=== PATIENT | male | born 1975 ===

== ENCOUNTER 2020-05-25 15:59 | Inpatient (IN) | payer SELFPAY ==
[~2020-05-25] VITALS: Ht 160 cm; Wt 78.5 kg
[~2020-05-25 15:59] MED LIST: INSU100I16 SQ; MTF500T PO; SITA100T PO
--- NOTE | 2020-05-25 16:03 | NUR ---
NOTIFIED DERRICK STINSON OF PT REPORTED CHEST TIGHTNESS
--- NOTE | 2020-05-25 16:28 | NUR ---
pt on 45% O2 on room air. rn quickly placed pt on 15L per n.c. until RT notified and bipap was set up.
[2020-05-25 16:39] VITALS: BP 121/77
--- NOTE | 2020-05-25 16:42 | ED Cough/URI ---
General Chief Complaint: Respiratory Problems Stated Complaint: CHEST TIGHTNESS/COUGH/SOA/COVID + Exam Limitations: clinical condition, language barrier History of Present Illness Date Seen by Provider: May 25, 2020 Time Seen by Provider: 16:28 Initial Comments 45-year-old male presents with chest tightness, shortness of breath, cough. Patient tested positive for COVID 2 days ago. Patient reports symptoms going on for 4 or 5 days. Patient has a known diabetic and takes pills for his diabetes. He does not take insulin. Patient states only French and an tmd teacher assistant was used so history of present illness may be limited. Patient's initial saturation upon arrival were 45%. Your brief history and which patient states he has diabetes, takes diabetic pills, has no known drug allergies, no other medical conditions he was in placed on BiPAP and tmd teacher assistant was no longer used and a strainer longer obtain due to patient distress. Chart review shows the patient is supposed be on Levemir but he states he does not take insulin shots Allergies and Home Medications Allergies Coded Allergies: No Known Drug Allergies (Unverified , 06/07/12) Home Medications No Active Prescriptions or Reported Meds Patient Home Medication List Home Medication List Reviewed: Yes (all he possibly on Levemir) Review of Systems Review of Systems Constitutional: chills, fever, malaise, weakness Respiratory: cough, short of breath Cardiovascular: chest pain; No palpitations, No syncope Gastrointestinal: no symptoms reported Genitourinary: no symptoms reported Musculoskeletal: no symptoms reported Skin: no symptoms reported Psychiatric/Neurological: No Symptoms Reported Hematologic/Lymphatic: No Symptoms Reported Past Bzboykn-Otafhm-Qmygsg Hx Past Med/Social Hx: Reviewed Nursing Past Med/Soc Hx Patient Social History Recent Foreign Travel: No Contact w/Someone Who Travel: No Immunizations Up To Date Date of Influenza Vaccine: Jun 08, 2012 Past Medical History Reproductive Disorders: No Physical Exam Vital Signs - First Documented 05/25/20 05/25/20 16:28 16:39 Temp 38.0 Pulse 105 Resp 25 B/P (MAP) 121/77 (92) Pulse Ox 97 O2 Delivery NIV Bilevel O2 Flow Rate 60.00 Capillary Refill : Height: '" Weight: lbs. oz. kg; BMI Method: General Appearance: mild distress, other (lethargic) Eyes: Bilateral Eye Normal Inspection Neck: full range of motion, supple Respiratory: no respiratory distress, no accessory muscle use, decreased breath sounds (bilateral bases) Cardiovascular: normal peripheral pulses, regular rate, rhythm Gastrointestinal: non tender, soft Neurologic/Psychiatric: no motor/sensory deficits, normal mood/affect, oriented x 3, other (lethargic) Skin: normal color, warm/dry Focused Exam Lactate Level 05/25/20 16:30: Lactic Acid Level 1.75 Respiratory: Decreased Breath Sounds Cardiovascular: Regular Rate, Rhythm Skin: normal color, warm/dry Lactic Acid Level Laboratory Tests Test 05/25/20 16:30 Lactic Acid Level 1.75 MMOL/L (0.50-2.00) Progress/Results/Core Measures Suspected Sepsis Infection Criteria Present: Documented Infection New/Unexplained Altered Menta: No Within 3hrs of presentation: Admin ABX, Focus exam, Lactate level SIRS Temperature: Pulse: Respiratory Rate: Blood Pressure / Mean: 05/25/20 16:30: Lactic Acid Level 1.75 Laboratory Tests 05/25/20 16:30: INR Comment 1.1, Total Bilirubin 0.5 Results/Orders Lab Results Laboratory Tests Test 05/25/20 16:30 05/25/20 17:03 Range/Units White Blood Count 13.5 H 4.3-11.0 10^3/uL Red Blood Count 5.25 4.30-5.52 10^6/uL Hemoglobin 14.1 13.3-17.7 g/dL Hematocrit 44 40-54 % Mean Corpuscular Volume 83 80-99 fL Mean Corpuscular Hemoglobin 27 25-34 pg Mean Corpuscular Hemoglobin Concent 32 32-36 g/dL Red Cell Distribution Width 12.3 10.0-14.5 % Platelet Count 303 130-400 10^3/uL Mean Platelet Volume 10.1 9.0-12.2 fL Immature Granulocyte % (Auto) 2 % Neutrophils (%) (Auto) 81 H 42-75 % Lymphocytes (%) (Auto) 13 12-44 % Monocytes (%) (Auto) 5 0-12 % Eosinophils (%) (Auto) 0 0-10 % Basophils (%) (Auto) 0 0-10 % Neutrophils # (Auto) 10.9 H 1.8-7.8 10^3/uL Lymphocytes # (Auto) 1.7 1.0-4.0 10^3/uL Monocytes # (Auto) 0.6 0.0-1.0 10^3/uL Eosinophils # (Auto) 0.0 0.0-0.3 10^3/uL Basophils # (Auto) 0.0 0.0-0.1 10^3/uL Immature Granulocyte # (Auto) 0.2 H 0.0-0.1 10^3/uL Prothrombin Time 14.6 12.2-14.7 SEC INR Comment 1.1 0.8-1.4 Activated Partial Thromboplast Time 29 24-35 SEC Fibrinogen 1123 H 221-496 MG/DL Sodium Level 132 L 135-145 MMOL/L Potassium Level 4.2 3.6-5.0 MMOL/L Chloride Level 96 L 98-107 MMOL/L Carbon Dioxide Level 16 L 21-32 MMOL/L Anion Gap 20 H 5-14 MMOL/L Blood Urea Nitrogen 18 7-18 MG/DL Creatinine 0.97 0.60-1.30 MG/DL Estimat Glomerular Filtration Rate > 60 BUN/Creatinine Ratio 19 Glucose Level 303 H 70-105 MG/DL Lactic Acid Level 1.75 0.50-2.00 MMOL/L Calcium Level 7.9 L 8.5-10.1 MG/DL Corrected Calcium 8.7 8.5-10.1 MG/DL Ferritin 1201.4 H 32.0-356.0 ng/mL Total Bilirubin 0.5 0.1-1.0 MG/DL Aspartate Amino Transf (AST/SGOT) 55 H 5-34 U/L Alanine Aminotransferase (ALT/SGPT) 43 0-55 U/L Alkaline Phosphatase 106 40-136 U/L Lactate Dehydrogenase 867 H 125-220 U/L Troponin I < 0.028 <0.028 NG/ML C-Reactive Protein High Sensitivity 43.04 H 0.00-0.50 MG/DL Total Protein 6.5 6.4-8.2 GM/DL Albumin 3.0 L 3.2-4.5 GM/DL Procalcitonin 1.50 H <0.10 NG/ML Glucometer 276 H 70-110 MG/DL Micro Results Microbiology 05/25/20 MRSA Screen - Final, Complete MRSA not isolated My Orders Orders - LUCI JOSHI DO Vital Signs: Every 4 Hours (Or (05/25/20 16:36) Monitor-Rhythm Ecg Trace Only (05/25/20 16:36) Ed Iv/Invasive Line Start (05/25/20 16:36) Cbc With Automated Diff (05/25/20 16:36) Comprehensive Metabolic Panel (05/25/20 16:36) Ferritin (05/25/20 16:36) LDH (05/25/20 16:36) Hs C Reactive Protein (05/25/20 16:36) Troponin I (05/25/20 16:36) Lactic Acid Analyzer (05/25/20 16:36) Protime With Inr (05/25/20 16:36) Partial Thromboplastin Time (05/25/20 16:36) Fibrinogen (05/25/20 16:36) Ekg Tracing (05/25/20 16:36) Chest 1 View, Ap/Pa Only (05/25/20 16:36) Ns Iv 1000 Ml (Sodium Chloride 0.9%) (05/25/20 16:45) Oxygen Delivery Set Up (05/25/20 16:36) Oxygen-Administer 07,19 (05/25/20 16:36) Accucheck Stat ONCE (05/25/20 16:36) Famotidine Injection (Pepcid Injection) (05/25/20 17:11) Dexamethasone Injection (Decadron Inje (05/25/20 17:15) Azithromycin Injection (Zithromax Inject (05/25/20 17:16) Procalcitonin (Pct) (05/25/20 17:17) Medications Given in ED Vital Signs/I&O 05/25/20 05/25/20 16:28 16:39 Temp 38.0 Pulse 105 99 Resp 25 28 B/P (MAP) 121/77 (92) Pulse Ox 97 94 O2 Delivery NIV Bilevel O2 Flow Rate 60.00 Capillary Refill : Progress Note : Time: 17:47 Progress Note Patient responded well to CPAP at 8 mg and 70% oxygen. Patient's oxygen saturation improved to mid 90s. Patient was given dexamethasone, Lovenox, azithromycin and Protonix while in the ER. Discussed with Dr. Carrero for [facility]. Patient to be admitted to their service in critical condition to the ICU. Patient is stable although critical upon admission Diagnostic Imaging Diagonstic Imaging: Xray Plain Films/CT/US/NM/MRI: chest Comments [facility] [place], [place] NAME: CON SHIRLEY MED REC#: [id number] PT STATUS: REG ER : 1975 PHYSICIAN: LUCI JOSHI DO ADMIT DATE: 05/25/20/ER Draft Date of Exam:05/25/20 CHEST 1 VIEW, AP/PA ONLY INDICATION: Shortness of air. TIME OF EXAM: 05:27 p.m. COMPARISON: No prior studies are available for comparison. FINDINGS: Extensive airspace infiltrates are identified throughout both lungs. The heart size is normal. No effusion or pneumothorax is identified. IMPRESSION: Extensive bilateral airspace pulmonary infiltrates suggestive of pneumonia. Dictated on workstation # [id number] Dict: 05/25/201726 Trans: 05/25/201728 [facility] [id number] Interpreted by: RODRIGO MIRELES MD Electronically signed by: Reviewed: Reviewed by Me, Reviewed/Discussed Departure Communication (Admissions) Time/Spoke to Admitting Phy: 17:40 admit to icu Impression Primary Impression: Pneumonia due to COVID-19 virus Additional Impression: Diabetes mellitus Qualified Codes: E11.9 - Type 2 diabetes mellitus without complications Disposition: ADMITTED INPATIENT Condition: Critical Admissions Decision to Admit Reason: Admit from ER (General) Decision to Admit/Date: May 25, 2020 Time/Decision to Admit Time: 17:40 Departure-Patient Inst. Scripts No Active Prescriptions or Reported Meds LUCI JOSHI DO May 25, 2020 16:42
[2020-05-25] MEDS ORDERED: NS IV 1000 ML 1,000 ML IV SCH (16:45)
[2020-05-25 16:47] LABS: BASOPHILS % (AUTO) 0 % (0-10); EOSINOPHILS % (AUTO) 0 % (0-10); HEMATOCRIT 44 % (40-54); HEMOGLOBIN 14.1 g/dL (13.3-17.7); LYMPHOCYTES # (AUTO) 1.7 10^3/uL (1.0-4.0); LYMPHOCYTES % (AUTO) 13 % (12-44); MEAN CORPUSCULAR HEMOGLOBIN 27 pg (25-34); MEAN CORPUSCULAR HGB CONC 32 g/dL (32-36); MEAN CORPUSCULAR VOLUME 83 fL (80-99); MEAN PLATELET VOLUME 10.1 fL (9.0-12.2); MONOCYTES # (AUTO) 0.6 10^3/uL (0.0-1.0); MONOCYTES % (AUTO) 5 % (0-12); NEUTROPHILS # (AUTO) 10.9 10^3/uL (1.8-7.8); NEUTROPHILS % (AUTO) 81 % (42-75); PLATELET COUNT 303 10^3/uL (130-400); WHITE BLOOD COUNT 13.5 10^3/uL (4.3-11.0)
[2020-05-25 16:59] LABS: CHLORIDE 96 MMOL/L (98-107); POTASSIUM 4.2 MMOL/L (3.6-5.0); SODIUM 132 MMOL/L (135-145)
[2020-05-25 17:00] LABS: CALCIUM 7.9 MG/DL (8.5-10.1)
[2020-05-25 17:01] LABS: GLUCOSE 303 MG/DL (70-105); TOTAL PROTEIN 6.5 GM/DL (6.4-8.2)
[2020-05-25 17:02] LABS: CARBON DIOXIDE 16 MMOL/L (21-32)
[2020-05-25 17:03] LABS: BILIRUBIN,TOTAL 0.5 MG/DL (0.1-1.0)
[2020-05-25 17:04] LABS: INR 1.1 (0.8-1.4); PROTHROMBIN TIME PATIENT 14.6 SEC (12.2-14.7)
[2020-05-25 17:05] LABS: ALKALINE PHOSPHATASE 106 U/L (40-136); CREATININE SERUM 0.97 MG/DL (0.60-1.30); GFR ESTIMATED > 60
[2020-05-25 17:06] LABS: BUN/CREATININE RATIO 19
[2020-05-25 17:08] LABS: ALANINE AMINOTRANSFERASE 43 U/L (0-55)
[2020-05-25] MEDS ORDERED: FAMOTIDINE 20MG/2ML IV (PEPCID) IV STA (17:11)
[2020-05-25] MEDS ORDERED: AZITHROMYCIN INJECTION 500 MG in NS (IVPB) 250 ML IV STA (17:16)
--- NOTE | 2020-05-25 17:30 | Diagnostic Imaging Report ---
INDICATION: Shortness of air. TIME OF EXAM: 05:27 p.m. COMPARISON: No prior studies are available for comparison. FINDINGS: Extensive airspace infiltrates are identified throughout both lungs. The heart size is normal. No effusion or pneumothorax is identified. IMPRESSION: Extensive bilateral airspace pulmonary infiltrates suggestive of pneumonia. Dictated by: Dictated on workstation # [id number]
[2020-05-25] MEDS ORDERED: ENOXAPARIN 60 MG/0.6 ML (LOVENOX) SYR SC ONE (17:45)
[2020-05-25 18:42] LABS: ABG BASE EXCESS -9.7 MMOL/L (-2.5-2.5); ABG OXYGEN SATURATION 93 % (94-100); ABG PCO2 27 MMHG (35-45); ABG PH 7.35 (7.37-7.43); ABG PO2 73 MMHG (79-93); ABG TCO2 15.4 MMOL/L (21.0-31.0)
[2020-05-25 18:46] LABS: ALLENS TEST POS; INSPIRED O2 60%; PATIENT TEMP 99.9; VENTILATOR NO
--- NOTE | 2020-05-25 22:46 | NUR ---
Patient to ICU room 2 at this time via stretcher from ED. Patient on BiPap 60% FIO2. Patient assisted to bed and monitors applied. This bond writer called the language line and bricklayer sewer used to explain all procedures to the patient. Patient verbalized understanding.
[2020-05-25 22:51] VITALS: BP 119/80
[2020-05-25] MEDS ORDERED: NS IV 1000 ML 1,000 ML ONE (22:51)
[2020-05-25 23:15] VITALS: BP 121/77
[2020-05-25] MEDS: cefTRIAXone FOR IV USE 1,000 MG in WATER (STERILE) FOR INJECTION 10 ML IV SCH ×2 (23:21→23:23)
[2020-05-25] MEDS ORDERED: RT-ALBUTEROL INHALER HFA (VENTOLIN HFA) 18 GM IH PRN (23:30)
--- NOTE | 2020-05-25 23:30 | NUR ---
Patient gave phone consent for CVP at this time with cross tie maker and Tenisha STINSON as witness.
[2020-05-26] VITALS (8 sets, daily range): BP systolic 111–141; BP diastolic 74–80
[2020-05-26] MEDS ORDERED: inSUlin ASPART (NovoLOG) 1 UNIT/0.01 ML (CHARGE PER UNIT) ONE (00:30)
--- NOTE | 2020-05-26 00:30 | NUR ---
Call placed to patient son Elias. Update given to Elias. Patient spoke to son on the phone. All questions/concerns addressed at this time.
[2020-05-26] MEDS ORDERED: NS IV 1000 ML 1,000 ML IV SCH (02:00)
[2020-05-26 03:00] LABS: BASOPHILS % (AUTO) 0 % (0-10); EOSINOPHILS % (AUTO) 0 % (0-10); HEMATOCRIT 41 % (40-54); HEMOGLOBIN 13.5 g/dL (13.3-17.7); LYMPHOCYTES % (AUTO) 9 % (12-44); MEAN CORPUSCULAR HEMOGLOBIN 27 pg (25-34); MEAN CORPUSCULAR HGB CONC 33 g/dL (32-36); MEAN CORPUSCULAR VOLUME 83 fL (80-99); MEAN PLATELET VOLUME 10.3 fL (9.0-12.2); MONOCYTES # (AUTO) 0.2 10^3/uL (0.0-1.0); MONOCYTES % (AUTO) 2 % (0-12); NEUTROPHILS # (AUTO) 9.8 10^3/uL (1.8-7.8); NEUTROPHILS % (AUTO) 87 % (42-75); PLATELET COUNT 307 10^3/uL (130-400); WHITE BLOOD COUNT 11.2 10^3/uL (4.3-11.0)
--- NOTE | 2020-05-26 03:05 | Pulmonary Consultation ---
DOROTA CRAMER,MED STUDENT 05/26/20 0305: History of Present Illness History of Present Illness Date Seen by Provider: May 26, 2020 Time Seen by Provider: 03:00 Date of Admission 05/25/20 History of Present Illness Patient is a 45yo male with a PMH of NIDDM who presented to [facility] ED yesterday c/o chest tightness, SOB and cough for x4-5 days. He was diagnosed with COVID-19 2 days prior. He is Korean-speaking only, so history is limited. He has a history of DM and per chart is on Levemir, but he denies taking insulin. On arrival to the ED he was placed on BIPAP, and he tolerated this well with O2 sats between 94-97%. He was started on Decadron and Azithromycin, and admitted. Allergies and Home Medications Allergies Coded Allergies: No Known Drug Allergies (Unverified , 06/07/12) Home Medications No Active Prescriptions or Reported Meds Past Ymhkpmb-Cyzrcc-Eykztn Hx Past Med/Social Hx: Reviewed Nursing Past Med/Soc Hx Patient Social History Alcohol Use: Denies Use Recreational Drug Use: No 2nd Hand Smoke Exposure: No Recent Foreign Travel: No Contact w/Someone Who Travel: No Recent Infectious Disease Expo: Yes Immunizations Up To Date Date of Influenza Vaccine: Jun 08, 2012 Past Medical History Respiratory: No Cardiac: No Reproductive Disorders: No Gastrointestinal: No Musculoskeletal: No Endocrine: Yes Diabetes, Non-Insulin dep Psychosocial: No Blood Disorders: No Sepsis Event Evaluation Height, Weight, BMI Height: '" Weight: lbs. oz. kg; 28.94 BMI Method: Exam Exam Vital Signs Date Time Temp Pulse Resp B/P (MAP) Pulse Ox O2 Delivery O2 Flow Rate FiO2 05/26/20 02:48 84 22 95 60.00 05/26/20 01:00 82 05/26/20 01:00 82 27 115/76 (89) 94 NIV Bilevel 60.00 05/26/20 00:25 36.8 NIV Bilevel 60.00 05/26/20 00:02 NIV Bilevel 60 05/26/20 00:00 83 24 118/78 (91) 94 NIV Bilevel 60.00 05/25/20 23:15 105 05/25/20 23:00 89 24 123/81 (95) 94 NIV Bilevel 60.00 05/25/20 22:52 87 05/25/20 22:51 88 25 93 60.00 05/25/20 22:51 36.8 87 20 119/80 (93) 93 NIV Bilevel 60.00 05/25/20 20:57 89 28 122/78 93 Room Air 05/25/20 17:50 37.7 95 28 127/76 96 NIV Bilevel 05/25/20 16:39 99 28 94 60.00 05/25/20 16:28 38.0 105 25 121/77 (92) 97 NIV Bilevel I & O 05/26/20 07:00 Intake Total 1250 ml Output Total 1150 ml Balance 100 ml Height & Weight Height: '" Weight: lbs. oz. kg; 28.94 BMI Method: Respiratory: Decreased Breath Sounds Cardiovascular: Regular Rate, Rhythm Capillary Refill: Less Than 3 Seconds Gastrointestinal: non tender, soft Results Lab Laboratory Tests 05/25/20 16:30 Assessment/Plan Assessment/Plan Acute hypoxic respiratory failure due to COVID-19 -in BIPAP 60% FIO2 at 60L/min -on Decadron (day 2) -awaiting convalescent plasma -CRP and PCT elevated, on Azithromycin and Rocephin -MRSA screen pending -repeat PCT Hyponatremia -on NS @ 100 mL/hr -continue to replace DVT/GI ppx -on Lovenox and Pepcid JUAN RENEE DO 05/26/20 0500: Allergies and Home Medications Allergies Coded Allergies: No Known Drug Allergies (Unverified , 06/07/12) Home Medications No Active Prescriptions or Reported Meds Review of Systems Time Seen by Provider: 09:52 Constitutional: Fever, Chills, Sweats, Weakness, Malaise, Other Eyes: No: Pain, Vision change, Conjunctivae inflammation, Eyelid inflammation, Other, Redness Exam Exam General Appearance: Anxious, Mild Distress HEENT: PERRL/EOMI, Pharynx Normal Neck: Full Range of Motion, Non Tender, Supple Respiratory: No Accessory Muscle Use, No Respiratory Distress, Crackles, Decreased Breath Sounds Cardiovascular: Regular Rate, Rhythm Capillary Refill: Less Than 3 Seconds Gastrointestinal: non tender, soft Extremity: Normal Capillary Refill, Normal Inspection, Non Tender, No Pedal Edema Neurologic/Psychiatric: Alert, Oriented x3 Skin: Normal Color, Warm/Dry Lymphatic: No Adenopathy Assessment/Plan Assessment/Plan Acute hypoxic respiratory failure due to COVID-19 with ARDS -in BIPAP 60% FIO2 at 60L/min -on Decadron (day 2) -s/p convalescent plasma -Start remdesivir -Awake proning -CRP and PCT elevated, on Azithromycin and Rocephin -MRSA screen pending -repeat PCT Acute DKA - Check Betahydroxybuterate and UA for ketones. -IVF -Start DKA protocol Hyponatremia -on NS @ 100 mL/hr -continue to replace DVT/GI ppx -on Lovenox and Pepcid Supervisory-Addendum Brief Verification & Attestation Participated in pt care: history, MDM, physical Personally performed: exam, history, MDM, supervision of care Care discussed with: Medical Student Procedures: n/a Verification and Attestation of Medical Student E/M Service A medical student performed and documented this service in my presence. I reviewed and verified all information documented by the medical student and made modifications to such information, when appropriate. I personally performed the physical exam and medical decision making. Juan Renee, Jun 02, 2020,09:55 DOROTA CRAMER,MED STUDENT May 26, 2020 03:05 JUAN RENEE DO May 26, 2020 05:00
[2020-05-26 03:13] LABS: ALBUMIN 2.6 GM/DL (3.2-4.5); CHLORIDE 101 MMOL/L (98-107); POTASSIUM 4.1 MMOL/L (3.6-5.0); SODIUM 132 MMOL/L (135-145)
[2020-05-26 03:15] LABS: CALCIUM 7.3 MG/DL (8.5-10.1)
[2020-05-26 03:16] LABS: GLUCOSE 291 MG/DL (70-105); TOTAL PROTEIN 5.8 GM/DL (6.4-8.2)
[2020-05-26 03:17] LABS: CARBON DIOXIDE 13 MMOL/L (21-32)
[2020-05-26 03:18] LABS: BILIRUBIN,TOTAL 0.3 MG/DL (0.1-1.0)
[2020-05-26 03:19] LABS: ALKALINE PHOSPHATASE 106 U/L (40-136); PHOSPHORUS 2.6 MG/DL (2.3-4.7)
[2020-05-26 03:20] LABS: CREATININE SERUM 0.79 MG/DL (0.60-1.30); GFR ESTIMATED > 60
[2020-05-26 03:21] LABS: BUN/CREATININE RATIO 24
[2020-05-26 03:22] LABS: ALANINE AMINOTRANSFERASE 38 U/L (0-55); MAGNESIUM 2.5 MG/DL (1.6-2.4)
[2020-05-26 03:46] LABS: ABG BASE EXCESS -7.2 MMOL/L (-2.5-2.5); ABG OXYGEN SATURATION 96 % (94-100); ABG PCO2 32 MMHG (35-45); ABG PH 7.35 (7.37-7.43); ABG PO2 75 MMHG (79-93); ABG TCO2 18.5 MMOL/L (21.0-31.0); ALLENS TEST YES-POS; INSPIRED O2 60%; PATIENT TEMP 35.9; VENTILATOR NO
[2020-05-26] MEDS: KCL 20 MEQ TAB (K-DUR) PO SCH (03:47)
[2020-05-26] MEDS: MAGNESIUM 1 GM/100 ML IVPB 100 ML IV SCH (03:47)
[2020-05-26] MEDS: POTASSIUM CL 10MEQ/50ML IVPB 50 ML IV SCH ×6 (03:48→21:36)
[2020-05-26] MEDS: RT-ALBUTEROL INHALER HFA (VENTOLIN HFA) 18 GM IH SCH ×4 (04:21→19:34)
[2020-05-26] MEDS: D5 LR IV SOLUTION 1,000 ML IV ONE ×2 (05:58→06:53)
[2020-05-26] MEDS: LACTATED RINGERS 1,000 ML IV SCH ×2 (05:58→16:15)
[2020-05-26] MEDS ORDERED: ENOXAPARIN 60 MG/0.6 ML (LOVENOX) SYR SC SCH (06:00)
[2020-05-26] MEDS ORDERED: inSUlin ASPART (NovoLOG) 1 UNIT/0.01 ML (CHARGE PER UNIT) SC SCH (06:00)
[2020-05-26 06:15] LABS: BILIRUBIN,URINE NEGATIVE (NEGATIVE); CLARITY,URINE CLEAR; COLOR,URINE YELLOW; GLUCOSE, URINE (UA) 2+ (NEGATIVE); KETONES,URINE 3+ (NEGATIVE); LEUKOCYTE ESTERASE ,URINE NEGATIVE (NEGATIVE); NITRITE,URINE NEGATIVE (NEGATIVE); PROTEIN,URINE 1+ (NEGATIVE)
[2020-05-26 06:28] LABS: BACTERIA,URINE NEGATIVE /HPF; SQUAMOUS EPITHELIAL CELL,UR RARE /HPF
[2020-05-26] MEDS ORDERED: REMDESIVIR INJ 200 MG in NS (IVPB) 210 ML IV NR (09:00)
[2020-05-26] MEDS: FAMOTIDINE 20MG/2ML IV (PEPCID) IVP SCH ×2 (09:01→21:01)
[2020-05-26] MEDS: D5 LR IV SOLUTION 1,000 ML IV SCH ×4 (12:55→21:26)
--- NOTE | 2020-05-26 15:03 | NUR ---
"RD ASSESSMENT PMHx: DM PT INTERACTION: Note pt is currently in COVID isolation, per chart review. Note all diet information for nutrition assessment is per Jaxson RN or per chart review. Jaxson states current appetite is poor. Note pt is currently on Bipap and has not been able to take it off long enough to consume food, per Jaxson. Jaxson states no issues with n/v/c/d that he is aware of. Note no BM has been recorded, and pt not currently on bowel regimen per chart review. Note unable to determine recent wt hx, per chart review. Note unable to determine current level of DM management and unable to determine recent HbA1c, per chart review. ABNORMAL NUTRITION-RELATED LAB VALUES LOW: Na 133; Ca 7.3; Pro 5.8; alb 2.6; HIGH: BUN 19; Mg 2.5; AST 50 Est. kcal needs: 1654-8803 kcal | 20-25 kcal/kg Est. Pro needs: 74-89 g Pro | 0.8-1.0 g Pro/kg PES STATEMENT: Inadequate oral intake (NI-2.1) related to inability to consume food as evidenced by chart review, and high need for Bipap oxygen. INTERVENTION: Continue with current diet order of Regular diet. Pt may benefit from consistent CHO restriction if blood glucose levels become elevated. Add Glucerna (vary) to meals TID, for increased kcal intake. Provides 220 kcal and 10 g Pro per serving. Spoke with Jaxson about seeing if pt could take Bipap off long enough to drink the supplementation to increase kcal intake. Did not offer diet education on DM management, d/t isolation precautions. Will continue to follow and reassess as pt needs, intake, and status change. Meghan ALMODOVAR, MS RD LD [phone] cell"
--- NOTE | 2020-05-26 15:06 | NUR ---
UNABLE TO SPEAK WITH THE PT AT THIS TIME- I CALLED THE PATIENTS SON (SURI) TO COMPLETE THE MED REC ACCORDING TO SURI THE PT DOES NOT TAKE ANY PRESCRIPTION MEDICATIONS. I ALSO SPECIFICALLY ASKED SURI IF HE DAD TAKES ANYTHING TO CONTROL HIS BLOOD SUGAR AND I WAS TOLD NO. CYNTHIA SAYS HE HAS SEEN HIS DAD TAKE OTC MEDICATIONS IN THE PAST, BUT NOTHING CURRENTLY. FOR THIS REASON THE MED REC HAS BEEN SET TO "NO MEDICATIONS" WHEN I ASKED SURI ABOUT A PREFERRED PHARMACY HE LISTED [facility] SINCE THAT IS WHERE HE AND HIS SIBLINGS GET THEIR MEDICATIONS.
[2020-05-26] MEDS: AZITHROMYCIN INJECTION 250 MG in NS (IVPB) 250 ML IV SCH (16:08)
[2020-05-26] MEDS: ENOXAPARIN 80 MG/0.8 ML (LOVENOX) SYR SC SCH (17:03)
[2020-05-26 23:08] LABS: BUN/CREATININE RATIO 22; CALCIUM 7.5 MG/DL (8.5-10.1); CARBON DIOXIDE 19 MMOL/L (21-32); CHLORIDE 107 MMOL/L (98-107); CREATININE SERUM 0.67 MG/DL (0.60-1.30); GFR ESTIMATED > 60; GLUCOSE 254 MG/DL (70-105); MAGNESIUM 2.2 MG/DL (1.6-2.4); POTASSIUM 3.4 MMOL/L (3.6-5.0); SODIUM 136 MMOL/L (135-145)
[2020-05-26 23:18] LABS: PHOSPHORUS 0.9 MG/DL (2.3-4.7)
[2020-05-27] MEDS: D5 LR IV SOLUTION 1,000 ML IV SCH ×5 (00:16→11:17)
[2020-05-27] MEDS: cefTRIAXone FOR IV USE 1,000 MG in WATER (STERILE) FOR INJECTION 10 ML IV SCH (00:18)
[2020-05-27] MEDS: POTASSIUM CL 10MEQ/50ML IVPB 50 ML IV SCH ×4 (00:19→08:53)
[2020-05-27] MEDS ORDERED: POTASSIUM PHOSPHATE INJ 30 MM in NS (IVPB) 250 ML IV ONE (00:30)
[2020-05-27 01:10] VITALS: BP 129/77
[2020-05-27] MEDS: RT-ALBUTEROL INHALER HFA (VENTOLIN HFA) 18 GM IH SCH ×4 (01:10→18:45)
[2020-05-27] MEDS: LACTATED RINGERS 1,000 ML IV SCH ×2 (01:38→11:17)
--- NOTE | 2020-05-27 03:18 | Pulmonary Progress Note ---
DOROTA CRAMER,MED STUDENT 05/27/20 0318: Subjective Date Seen by a Provider: May 27, 2020 Time Seen by a Provider: 03:10 Subjective/Events-last exam Now on vapotherm 100% FiO2 at 60L/min, O2 sat 91% Negative for influenza Sepsis Event Evaluation Height, Weight, BMI Height: '" Weight: lbs. oz. kg; 28.94 BMI Method: Focused Exam Lactate Level 05/25/20 16:30: Lactic Acid Level 1.75 05/26/20 05:20: Lactic Acid Level 1.41 Exam Exam Vital Signs Date Time Temp Pulse Resp B/P (MAP) Pulse Ox O2 Delivery O2 Flow Rate FiO2 05/27/20 01:10 77 26 91 60.00 05/27/20 00:00 85 98/58 (71) 92 40.00 100.00 05/26/20 23:00 82 116/74 (88) 89 40.00 100.00 05/26/20 22:00 86 25 112/77 (89) 89 Vapotherm 40.00 100.00 05/26/20 21:24 90 Vapotherm 40.00 100 05/26/20 21:00 95 25 127/80 (96) 90 Vapotherm 40.00 100.00 05/26/20 21:00 Vapotherm 40.00 100 05/26/20 20:59 36.4 94 18 127/80 (96) 90 Vapotherm 40.00 100.00 05/26/20 20:00 96 116/75 (89) 89 NIV Bilevel 60.00 05/26/20 19:34 92 Vapotherm 40.00 100 05/26/20 19:00 78 119/76 (90) 94 NIV Bilevel 60.00 05/26/20 18:34 80 05/26/20 18:00 85 97/70 (79) 94 NIV Bilevel 60.00 05/26/20 17:00 91 109/71 (84) 91 NIV Bilevel 60.00 05/26/20 16:00 95 126/47 (73) 95 NIV Bilevel 60.00 05/26/20 15:00 86 45 129/79 (96) 89 NIV Bilevel 60.00 05/26/20 14:05 97 Vapotherm 40.00 100 05/26/20 14:00 73 30 98/68 (78) 94 NIV Bilevel 60.00 05/26/20 13:00 72 26 101/58 (72) 94 NIV Bilevel 60.00 05/26/20 12:51 73 05/26/20 12:00 76 26 105/66 (79) 92 NIV Bilevel 60.00 05/26/20 11:51 36.6 05/26/20 11:00 73 14 110/68 (82) 92 NIV Bilevel 60.00 05/26/20 10:27 73 26 96 80.00 05/26/20 10:00 75 25 119/80 (93) 94 NIV Bilevel 60.00 05/26/20 09:06 76 23 88 100.00 05/26/20 09:00 NIV Bilevel 100 05/26/20 09:00 86 14 121/79 (93) 89 NIV Bilevel 60.00 05/26/20 08:34 36.4 05/26/20 08:00 76 13 114/74 (87) 95 NIV Bilevel 60.00 05/26/20 07:46 75 21 93 60.00 05/26/20 07:03 73 05/26/20 07:00 77 20 113/74 (87) 95 NIV Bilevel 60.00 05/26/20 06:37 36.3 75 18 124/80 95 NIV Bilevel 60 05/26/20 06:36 36.3 05/26/20 06:00 80 9 124/80 (95) 94 NIV Bilevel 60.00 05/26/20 05:00 88 27 130/84 (99) 96 NIV Bilevel 60.00 05/26/20 04:25 35.8 77 22 111/75 93 NIV Bilevel 60 05/26/20 04:12 36.2 75 18 116/75 91 NIV Bilevel 60 05/26/20 04:00 75 23 111/75 (87) 91 NIV Bilevel 60.00 05/26/20 03:32 35.9 I & O 05/27/20 07:00 Intake Total 3196 ml Output Total 1175 ml Balance 2021 ml Height & Weight Height: '" Weight: lbs. oz. kg; 28.94 BMI Method: Respiratory: Decreased Breath Sounds Cardiovascular: Regular Rate, Rhythm Capillary Refill: Less Than 3 Seconds Gastrointestinal: non tender, soft Results Lab Laboratory Tests 05/25/20 16:30 05/26/20 02:40 05/26/20 22:35 Assessment/Plan Assessment/Plan Acute hypoxic respiratory failure due to COVID-19 with ARDS -in vapotherm 100% FIO2 at 60L/min -on Decadron (day 3) -s/p convalescent plasma -On remdesivir -Awake proning -CRP and PCT elevated, on Azithromycin and Rocephin -MRSA screen pending -repeat PCT Acute DKA -Beta-hydroxybutyrate elevated -on D5LR at 250/hr -Start DKA protocol Hyponatremia -improved -continue to replace DVT/GI ppx -on Lovenox and Pepcid RUTHIESUSY Haas DO 05/27/20 0453: Subjective Subjective/Events-last exam No complications noted. Exam Exam General Appearance: No Apparent Distress, WD/WN HEENT: PERRL/EOMI, Pharynx Normal Neck: Full Range of Motion, Non Tender, Supple Respiratory: No Accessory Muscle Use, No Respiratory Distress, Decreased Breath Sounds, Other (Currently on Vapotherm without increased WOB. ) Cardiovascular: Regular Rate, Rhythm, No Edema Capillary Refill: Less Than 3 Seconds Gastrointestinal: normal bowel sounds, non tender, soft, no organomegaly Extremity: Normal Capillary Refill, Normal Range of Motion, Non Tender, No Pedal Edema Neurologic/Psychiatric: Alert, Oriented x3 Skin: Normal Color, Warm/Dry Lymphatic: No Adenopathy Assessment/Plan Assessment/Plan Acute hypoxic respiratory failure due to COVID-19 with ARDS -in vapotherm 100% FIO2 at 60L/min -on Decadron (day 3) -EICU managed pt through the night. -s/p convalescent plasma -On remdesivir -Awake proning PNA -CRP and PCT elevated, on Azithromycin and Rocephin -MRSA screen pending -repeat PCT Acute DKA -Beta-hydroxybutyrate elevated -on D5LR at 250/hr -Start DKA protocol Hyponatremia -improved -continue to replace DVT/GI ppx -on Lovenox and Pepcid Supervisory-Addendum Brief Verification & Attestation Participated in pt care: history, MDM, physical Personally performed: exam, history, MDM, supervision of care Care discussed with: Medical Student Procedures: n/a Verification and Attestation of Medical Student E/M Service A medical student performed and documented this service in my presence. I reviewed and verified all information documented by the medical student and made modifications to such information, when appropriate. I personally performed the physical exam and medical decision making. Susy Renee, Jun 02, 2020,09:56 DOROTA CRAMER,MED STUDENT May 27, 2020 03:18 SUSY RENEE DO May 27, 2020 04:53
[2020-05-27 03:53] VITALS: BP 129/77
--- NOTE | 2020-05-27 06:28 | Diagnostic Imaging Report ---
INDICATION: Respiratory failure Portable chest 5:55 AM There are severe diffuse alveolar infiltrates in both lungs. Heart size and pulmonary vascularity are normal. There are no effusions or pneumothoraces. IMPRESSION: Severe diffuse alveolar infiltrates throughout both lungs. Little appreciable change compared to 05/25/2020. Dictated by: Dictated on workstation # [id number]
[2020-05-27 06:54] LABS: BASOPHILS % (AUTO) 0 % (0-10); EOSINOPHILS % (AUTO) 0 % (0-10); HEMATOCRIT 37 % (40-54); HEMOGLOBIN 12.5 g/dL (13.3-17.7); LYMPHOCYTES # (AUTO) 0.8 10^3/uL (1.0-4.0); LYMPHOCYTES % (AUTO) 5 % (12-44); MEAN CORPUSCULAR HEMOGLOBIN 27 pg (25-34); MEAN CORPUSCULAR HGB CONC 33 g/dL (32-36); MEAN CORPUSCULAR VOLUME 81 fL (80-99); MEAN PLATELET VOLUME 10.2 fL (9.0-12.2); MONOCYTES # (AUTO) 0.3 10^3/uL (0.0-1.0); MONOCYTES % (AUTO) 2 % (0-12); NEUTROPHILS # (AUTO) 14.5 10^3/uL (1.8-7.8); NEUTROPHILS % (AUTO) 92 % (42-75); PLATELET COUNT 304 10^3/uL (130-400); WHITE BLOOD COUNT 15.8 10^3/uL (4.3-11.0)
[2020-05-27] MEDS: ENOXAPARIN 80 MG/0.8 ML (LOVENOX) SYR SC SCH ×2 (07:02→16:44)
[2020-05-27 07:12] LABS: BUN/CREATININE RATIO 18; CALCIUM 7.5 MG/DL (8.5-10.1); CARBON DIOXIDE 21 MMOL/L (21-32); CHLORIDE 108 MMOL/L (98-107); CREATININE SERUM 0.57 MG/DL (0.60-1.30); GFR ESTIMATED > 60; GLUCOSE 141 MG/DL (70-105); MAGNESIUM 2.1 MG/DL (1.6-2.4); PHOSPHORUS 1.8 MG/DL (2.3-4.7); POTASSIUM 3.7 MMOL/L (3.6-5.0); SODIUM 138 MMOL/L (135-145)
[2020-05-27 07:30] LABS: BAND NEUTROPHILS 5 %; BASOPHILS % (MANUAL) 0 %; EOSINOPHILS % (MANUAL) 0 %; LYMPHOCYTES % (MANUAL) 3 %; MONOCYTES % (MANUAL) 1 %; NEUTROPHILS % (MANUAL) 91 %; RBC MORPH NORMAL
[2020-05-27] MEDS: FAMOTIDINE 20MG/2ML IV (PEPCID) IVP SCH ×2 (08:54→20:31)
[2020-05-27] MEDS: KCL 20 MEQ TAB (K-DUR) PO SCH (08:58)
[2020-05-27] MEDS ORDERED: ONDANSETRON 4 MG/2 ML (SDV) Z0FRAN IVP PRN (09:00)
[2020-05-27] MEDS ORDERED: REMDESIVIR INJ 100 MG in NS (IVPB) 230 ML IV SCH (09:00)
[2020-05-27] MEDS: MAGNESIUM 1 GM/100 ML IVPB 100 ML IV SCH (09:45)
[2020-05-27] MEDS: inSUlin ASPART (NovoLOG) 1 UNIT/0.01 ML (CHARGE PER UNIT) SC SCH ×3 (11:16→20:32)
--- NOTE | 2020-05-27 14:21 | NUR ---
SPOKE WITH DOC (FAMILY MEMBER AND MEASUREMENT PSYCHOLOGIST). FAMILY WAS ASKING IF PT WOULD BE ABLE TO GO HOME AND BE TREATED AT HOME. EDUCATED FAMILY THAT PT IS REQUIRING A HIGH LEVEL OF O2 TO KEEP HIS SAT UP AND THAT HE WOULDN'T BE ABLE TO RECEIVE THIS AT HOME AND WOULD LIKELY IF HE WENT HOME OR WOULD POSSIBLY WIND UP INTUBATED EMERGENTLY. DOC VERBALIZED UNDERSTANDING AND STATED THAT HE WOULD RELAY TO FAMILY.
--- NOTE | 2020-05-27 15:09 | NUR ---
Note avg PO intake 25% x1d, per chart review. Recommend continue with current diet and supplementation order at this time, to increase kcal intake. Will continue to follow and reassess as pt needs, intake, and status change. Meghan ALMODOVAR, MS RD LD
[2020-05-27] MEDS: AZITHROMYCIN INJECTION 250 MG in NS (IVPB) 250 ML IV SCH (16:44)
[2020-05-28] MEDS: cefTRIAXone FOR IV USE 1,000 MG in WATER (STERILE) FOR INJECTION 10 ML IV SCH (00:17)
[2020-05-28 00:51] VITALS: BP 129/77
[2020-05-28] MEDS: RT-ALBUTEROL INHALER HFA (VENTOLIN HFA) 18 GM IH SCH (02:09)
[2020-05-28 02:10] VITALS: BP 129/77
[2020-05-28 04:56] LABS: BASOPHILS % (AUTO) 0 % (0-10); EOSINOPHILS % (AUTO) 0 % (0-10); HEMATOCRIT 39 % (40-54); HEMOGLOBIN 13.1 g/dL (13.3-17.7); LYMPHOCYTES # (AUTO) 0.8 10^3/uL (1.0-4.0); LYMPHOCYTES % (AUTO) 8 % (12-44); MEAN CORPUSCULAR HEMOGLOBIN 27 pg (25-34); MEAN CORPUSCULAR HGB CONC 33 g/dL (32-36); MEAN CORPUSCULAR VOLUME 81 fL (80-99); MEAN PLATELET VOLUME 10.6 fL (9.0-12.2); MONOCYTES # (AUTO) 0.1 10^3/uL (0.0-1.0); MONOCYTES % (AUTO) 1 % (0-12); NEUTROPHILS # (AUTO) 8.8 10^3/uL (1.8-7.8); NEUTROPHILS % (AUTO) 90 % (42-75); PLATELET COUNT 265 10^3/uL (130-400); WHITE BLOOD COUNT 9.8 10^3/uL (4.3-11.0)
--- NOTE | 2020-05-28 05:00 | NUR ---
PT IN V-FIB, NO PULSE, CODE BLUE CALLED, SEE CODE BLUE SHEET
[2020-05-28 05:01] LABS: CHLORIDE 102 MMOL/L (98-107); POTASSIUM 3.9 MMOL/L (3.6-5.0); SODIUM 136 MMOL/L (135-145)
[2020-05-28 05:03] LABS: CALCIUM 7.5 MG/DL (8.5-10.1)
[2020-05-28 05:04] LABS: GLUCOSE 107 MG/DL (70-105)
[2020-05-28 05:05] LABS: CARBON DIOXIDE 23 MMOL/L (21-32)
[2020-05-28 05:07] LABS: CREATININE SERUM 0.59 MG/DL (0.60-1.30); GFR ESTIMATED > 60; PHOSPHORUS 2.6 MG/DL (2.3-4.7)
[2020-05-28 05:08] LABS: BUN/CREATININE RATIO 20
[2020-05-28] MEDS ORDERED: AMIODARONE (BOLUS) 150 MG/3 ML IV ONE (05:08)
--- NOTE | 2020-05-28 05:30 | NUR ---
CODE CALLED. TIME OF 8929
--- NOTE | 2020-05-28 05:30 | NUR ---
DR HENDRICKS ATTEMPTED TO CALL FAMILY, NO ANSWER
--- NOTE | 2020-05-28 05:36 | Pulmonary Progress Note ---
Standard Progress Note Progress Notes Date Seen by Provider: May 28, 2020 Time Seen by Provider: 05:35 Called to bedside secondary to ELEANOR Blue. CODE team arrived to bedside. Dr. Quinones also responded to CODE. ACLS protocol followed. Pt never regained ROSC. Time of is 524. Attempted to call family at 540 and again at 630. Unable to reach family. Update I was able to speak with family. I explained what happened and answered all questions to the best of my ability. Assessment & Plan Acute hypoxic respiratory failure due to COVID-19 with ARDS S/p Acute DKA DVT/GI ppx Critical Care: Critically Ill Patient Time spent with patient (mins): 60 Focused Exam Lactate Level 05/25/20 16:30: Lactic Acid Level 1.75 05/26/20 05:20: Lactic Acid Level 1.41 SUSY HENDRICKS DO May 28, 2020 05:36
--- NOTE | 2020-05-28 06:30 | NUR ---
ATTEMPTED TO CALL FAMILY AGAIN, NUMBER CALLED [phone] AND [phone], NO ANSWER AT EITHER ONE, [employer] INSTRUCTOR NOTIFIED
--- NOTE | 2020-05-28 06:55 | NUR ---
CALLED AT [phone] WITH BHAVIK STINSON FROM [facility] HERE TO INTERPRET, HER AND DR HENDRICKS EXPLAINED EVENTS OF EARLIER
--- NOTE | 2020-05-28 07:05 | NUR ---
SON CALLED AND DR HENDRICKS TALKING TO HIM NOW
--- NOTE | 2020-05-28 07:34 | NUR ---
FAMILY HERE TO WAITING ROOM, WAITING FOR PASTORAL CARE
--- NOTE | 2020-05-28 07:36 | NUR ---
BHAVIK RN HERE TO INTERPRET FOR FAMILY AND PQASTORAL CARE
--- NOTE | 2020-05-28 07:40 | NUR ---
[facility] NOTIFIED OF , REF NUMBER [id number]
--- NOTE | 2020-05-28 08:20 | NUR ---
met the pt's son, and sister in law in the pt's room. Signing Teacher offered calming and compassionate presence, facilitated sacred space through prayer, provided empathic listening, and facilitated communication between family and staff while in the pt's room. Three visitors total were permitted in the building. initiated a face-time conference call with the patient's family who were outside the ER, in [place], and in [facility]. The son and used their own phones for the call. The KAHLIL shared the pt has 5 children. The eldest (Elias) is 18 yrs old and the youngest is 1 yr. Patient is [employer]. No contacts requested. Pt's and son grieved and wept intensely for approximately one hour while face-timing the family. The pt's hugged the patient. Both the and son periodically nudged the patient, as if to try and awaken him. When the moved to sit down across the room, this Signing Teacher provided soothing touch and stood at her side until her body relaxed and sobs subsided. After speaking with her son, [facility]. Family desires burial in [facility].The family requested that Wilmer Jean-Baptiste, the pt's nephew, be the mortuary's point of contact. communicated this to staff outside the room door so the call could be made while this Signing Teacher remained in isolation with the family. Upon entering the pt's room, this Signing Teacher observed that the pt's sister in law and were only wearing masks. The pt's son had full PPE, however abruptly removed his gown approximately 45 minutes into the visit. This Signing Teacher requested that Scottie Sanchez, hha, be contacted to advise. Signing Teacher was notified that Scottie could not be reached, so RN asked this Signing Teacher to instruct the family to wash their hands and accompany the RN to the exit while not touching anything.
[2020-05-28] MEDS ORDERED: SODIUM BICARB 8.4% 50 MEQ/50 ML (ABBOTT) SYR INJ ONE (20:20)
[2020-05-28] MEDS ORDERED: EPINEPHrine 0.1 MG/ML 10 ML (HOSPIRA) SYR IJ ONE (20:20)
== END 2020-05-28 11:00 | disposition expired | DRG 177 ==
LOC: EDUNIT# 15:59 → ER 16:03 → ICU 17:40
PROVIDERS: ADMIT Family Medicine; ATTEND Family Medicine
PROC: 5A09457 Assistance with Respiratory Ventilation, 24-96 Consecutive Hours, Continuous Positive Airway Pressure (ICD-10-PCS; 2020-05-25)
PROC: XW033E5 Introduction of Remdesivir Anti-infective into Peripheral Vein, Percutaneous Approach, New Technology Group 5 (ICD-10-PCS; principal; 2020-05-26)
PROC: XW13325 Transfusion of Convalescent Plasma (Nonautologous) into Peripheral Vein, Percutaneous Approach, New Technology Group 5 (ICD-10-PCS; 2020-05-26)
PROC: 5A12012 Performance of Cardiac Output, Single, Manual (ICD-10-PCS; 2020-05-28)
DX: U07.1 COVID-19 (principal); J12.89 Other viral pneumonia; J80 Acute respiratory distress syndrome; E11.10 Type 2 diabetes mellitus with ketoacidosis without coma; E87.1 Hypo-osmolality and hyponatremia; I46.9 Cardiac arrest, cause unspecified; Z79.4 Long term (current) use of insulin
CPT/HCPCS: 36415; 71045; 80048; 80053; 81000; 82010; 82728; 82805; 82962; 83036; 83605; 83615; 83735; 83880; 84100; 84145; 84484; 85007; 85025; 85027; 85379; 85384; 85610; 85730; 86141; 86900; 86901; 87081; 87804; 93041; 94640; 94660; 96361; 96372; 96374; 96375